=== PATIENT | male | born 1935 | race Caucasian/White ===

== ENCOUNTER 2018-09-28 17:29 | Emergency (ER) | payer MEDICARE, OTHER ==
[~2018-09-28] VITALS: Ht 172.7 cm; Wt 85.0 kg
[2018-09-28 17:35] VITALS: BP 112/85
== END 2018-09-28 19:47 | disposition home or self-care (01) ==
LOC: ER 17:29
DX: M25.551 Pain in right hip (principal); G89.29 Other chronic pain; W19.XXXA Unspecified fall, initial encounter; Y93.89 Activity, other specified; Y92.89 Other specified places as the place of occurrence of the external cause; Y99.8 Other external cause status
CPT/HCPCS: 73502; 99284